=== PATIENT | male | born 1985 | race Caucasian/White ===

== ENCOUNTER 2016-12-20 01:38 | Emergency (ER) | payer SELFPAY ==
[~2016-12-20] VITALS: Ht 185.4 cm; Wt 86.2 kg
[2016-12-20 01:50] VITALS: BP 132/81
[2016-12-20] MEDS ORDERED: Clindamycin 150mg cap ORAL STA (01:56)
[2016-12-20] MEDS ORDERED: CLINDAMYCIN HC300 MG ORAL (02:10)
--- NOTE | 2016-12-20 02:10 | Emergency Room Report ---
History of Present Illness General Chief Complaint: Skin Rash/Abscess Source: Patient Present Illness HPI Is a 31-year-old male with a history of heroin abuse. He presents with chief complaint of drainage to the right leg. Has been ongoing he claimed for couple days. He has redness to that area for the last week or so. Never had this problem before. No nausea no vomiting. No fever or chills. Worse with walking. Allergies: Coded Allergies: No Known Allergies (Unverified , 12/20/16) Patient History Past Medical History: see triage record, old chart reviewed Past Surgical History: none Pertinent Family History: none Social History: Reports: drug use Immunizations: other Reviewed Nursing Documentation: PMH: Agreed, PSxH: Agreed Nursing Documentation-PMH Past Medical History: No Stated History Review of Systems Eye: Denies: blurred vision, eye pain ENT: Denies: ear pain, nose congestion, throat swelling Respiratory: Denies: cough, shortness of breath Cardiovascular: Denies: chest pain, palpitations Gastrointestinal: Denies: abdominal pain, diarrhea, nausea, vomiting Musculoskeletal: Denies: back pain, joint pain Skin: Reports: rash Neurological: Denies: headache, numbness Endocrine: Denies: increased thirst, increased urine Hematologic/Lymphatic: Denies: easy bruising All Other Systems: negative except mentioned in HPI Physical Exam Vital Signs Date Time Temp Pulse Resp B/P Pulse Ox O2 Delivery O2 Flow Rate FiO2 12/20/16 01:45 98.2 112 16 132/81 98 Room Air vitals with tachycardia Sp02 EP Interpretation: reviewed, normal General Appearance: well appearing, no apparent distress, alert Head: normocephalic, atraumatic Eyes: bilateral eye EOMI, bilateral eye PERRL ENT: hearing grossly normal, normal pharynx Neck: full range of motion, supple, no meningismus Respiratory: chest non-tender, lungs clear, normal breath sounds Cardiovascular #1: regular rate, rhythm, no murmur Gastrointestinal: normal bowel sounds, non tender, no mass, no organomegaly, no bruit, non-distended Musculoskeletal: back normal, gait/station normal, normal range of motion, other - Right lower extremity: Distal lower extremity above the ankle, medially there are to necrotic area of 1 cm. The chart he scabbed over. Minimal purulent discharge. There is erythema surrounding it. No fluctuant. No crepitance. Sensation normal. Pulses normal. Neurologic: alert, oriented x3 Psychiatric: mood/affect normal Skin: warm/dry Medical Decision Making Diagnostic Impression: Primary Impression: Abscess Additional Impression: Heroin abuse ER Course Patient with cellulitis and abscess to his right lower extremity. It started draining so I see no need for further I&D. We'll treat with antibiotics and wound dressing. We'll discharge home. No evidence of necrotizing fasciitis of foreign body. He denies injecting in that area. Last Vital Signs Date Time Temp Pulse Resp B/P Pulse Ox O2 Delivery O2 Flow Rate FiO2 12/20/16 01:50 98.2 16 132/81 98 Room Air 12/20/16 01:45 112 Status: improved Disposition: HOME, SELF-CARE Condition: Stable Scripts Clindamycin Hcl (CLINDAMYCIN HCL) 300 Mg Capsule 300 MG ORAL THREE TIMES A DAY, #21 CAP Prov: MARKOS QUINONEZ M.D. 12/20/16 Patient Instructions: Abscess Additional Instructions: Followup with your DrCarlos A in 7 days. Return if symptom worsen. MARKOS QUINONEZ M.D. Dec 20, 2016 02:10
[2016-12-20 02:31] VITALS: BP 132/81
== END 2016-12-20 02:31 | disposition home or self-care (01) ==
LOC: EMR 02:03
DX: L02.415 Cutaneous abscess of right lower limb (principal); F11.10 Opioid abuse, uncomplicated
CPT/HCPCS: 99282